=== PATIENT | male | born 1970 | race Caucasian/White ===

== ENCOUNTER 2018-12-09 11:05 | Inpatient (IN) | payer MEDICAID ==
[2018-12-09] MEDS: Zinc Oxide 20% Oint 56.7 GM Tube TOP SCH (18:05)
[2018-12-09] MEDS: Dextrose 5%-Lactated Ringers 1,000 ML IV SCH (23:50)
[2018-12-09] MEDS: Nystatin Topical Powder 15 GM Bottle TOP SCH (23:51)
[2018-12-10] MEDS: Dextrose 5%-Lactated Ringers 1,000 ML IV SCH ×2 (08:06→16:43)
[2018-12-10] MEDS: Zinc Oxide 20% Oint 56.7 GM Tube TOP SCH (08:07)
[2018-12-10] MEDS: Nystatin Topical Powder 15 GM Bottle TOP SCH ×3 (08:17→20:46)
[2018-12-10] MEDS ORDERED: Celecoxib 200 MG Cap PO ONE (08:30)
[2018-12-10] MEDS ORDERED: Gabapentin 300 MG Cap PO ONE (08:30)
[2018-12-10] MEDS ORDERED: Acetaminophen 500 MG Tab PO ONE (08:30)
[2018-12-10] MEDS ORDERED: Enoxaparin 60 MG/0.6 ML Syringe SUBCUT ONE (08:30)
[2018-12-10] MEDS ORDERED: Scopolamine 1.5 MG Transdermal Patch TOP SCH (08:30)
[2018-12-10] MEDS ORDERED: Rocuronium 50 MG/5 ML Vial ONE (09:39)
[2018-12-10] MEDS ORDERED: Succinylcholine 200 MG/10 ML MDV ONE (09:39)
[2018-12-10] MEDS ORDERED: Ondansetron 4 MG/2 ML SDV ONE (09:39)
[2018-12-10] MEDS ORDERED: Dexamethasone 4 MG/ML SDV ONE (09:39)
[2018-12-10] MEDS ORDERED: Glycopyrrolate 0.2 MG/ML 5 ML MDV ONE (09:39)
[2018-12-10] MEDS ORDERED: Neostigmine Methylsulfate 1 MG/ML 5 ML Syringe ONE (09:39)
[2018-12-10] MEDS ORDERED: Propofol 200 MG/20 ML SDV ONE (09:39)
[2018-12-10] MEDS ORDERED: Lidocaine 2% 100 MG/5 ML Syringe IVPUSH SCH ×2 (11:00→11:30)
[2018-12-10] MEDS ORDERED: Lidocaine 0.4%/D5W 2 GM/500 ML BAG IV SCH (11:30)
[2018-12-10] MEDS ORDERED: Ketamine 500 MG/5 ML MDV IV SCH (11:30)
[2018-12-10] MEDS ORDERED: Ketamine 50 MG in Sodium Chloride 0.9% 49.5 ML IV SCH (11:30)
[2018-12-10] MEDS ORDERED: cefOXitin 2 GM in Sodium Chloride 0.9% 50 ML IV ONE (11:30)
[2018-12-10] MEDS: cefOXitin 2 GM Vial ONE ×2 (13:54→14:54)
[2018-12-10] MEDS ORDERED: fentaNYL 250 MCG/5 ML SDV ONE (14:19)
[2018-12-10] MEDS ORDERED: hydrOXYzine HCl 100 MG/2 ML SDV IM ONE (15:55)
[2018-12-10] MEDS ORDERED: hydrOXYzine HCl 100 MG/2 ML SDV IM PRN (16:43)
[2018-12-10] MEDS ORDERED: Labetalol 20 MG/4 ML Syringe IVPUSH PRN (16:43)
[2018-12-10] MEDS ORDERED: HYDROmorphone 0.5 MG/0.5 ML Syringe IVPUSH PRN (16:43)
[2018-12-10] MEDS ORDERED: diphenhydrAMINE 50 MG/ML SDV IVPUSH PRN (16:43)
[2018-12-10] MEDS ORDERED: HYDROmorphone 1 MG/ML Syringe IV PRN (16:43)
[2018-12-10] MEDS ORDERED: Metoclopramide 10 MG/2 ML SDV IVPUSH PRN (16:43)
[2018-12-10] MEDS ORDERED: Ondansetron 4 MG/2 ML SDV IVPUSH PRN (16:43)
[2018-12-10] MEDS ORDERED: MVI, Adult with Vitamin K 10 ML, Thiamine 200 MG, Chromium/Copper/Mang/Selen/Zn 1 ML in... IV SCH ×4 (17:00)
[2018-12-10] MEDS: Heparin Sodium 5,000 Units/ML Vial SUBCUT SCH (18:02)
[2018-12-10] MEDS: cefOXitin 2 GM in Sodium Chloride 0.9% 50 ML IV SCH (19:29)
[2018-12-10] MEDS ORDERED: Acetaminophen Soln 650 MG/20.3 ML UD Cup PO SCH (20:00)
[2018-12-10] MEDS ORDERED: Pantoprazole 40 MG Vial IVPUSH SCH (20:00)
[2018-12-10] MEDS: Acetaminophen 325 MG Tab PO SCH (20:41)
[2018-12-10] MEDS: Gabapentin 250 MG/5 ML Solution ML 470 ML Bottle PO SCH (20:42)
[2018-12-11] MEDS: cefOXitin 2 GM in Sodium Chloride 0.9% 50 ML IV SCH ×4 (01:30→20:16)
[2018-12-11] MEDS: Acetaminophen 325 MG Tab PO SCH ×4 (01:31→20:16)
[2018-12-11] MEDS: Heparin Sodium 5,000 Units/ML Vial SUBCUT SCH ×2 (01:32→10:40)
--- NOTE | 2018-12-11 05:06 | CRLCR ---
Indication: Status post Holly-en-Y leak check Technique: KUB 3 view Comparison: None Findings/Impression: Oral contrast extends from the esophagus to the mid to distal jejunum. There are 2 oval opacities at the level of the proximal stomach which persist on all 3 images. The largest of these measures 2.3 cm in diameter. These are located medial to a ORTIZ drain in the left upper quadrant. Although this could represent oral contrast within the lumen, extravasation cannot be excluded. Consider CT for further evaluation. These findings were discussed with Dr. Hilton at 5 a.m. on December 11, 2018. Dictated by Kourtney Garcia MD @ Dec 11 2018 4:54AM (Electronically Signed)
[2018-12-11] MEDS: Dextrose 5%-Lactated Ringers 1,000 ML IV SCH ×3 (06:24→12:53)
[2018-12-11] MEDS: Celecoxib 200 MG Cap PO SCH (07:16)
[2018-12-11] MEDS: SCOPOLAMINE PATCH CHECK TOP SCH (08:27)
[2018-12-11] MEDS: Gabapentin 250 MG/5 ML Solution ML 470 ML Bottle PO SCH ×3 (08:27→20:16)
[2018-12-11] MEDS: Nystatin Topical Powder 15 GM Bottle TOP SCH ×3 (08:27→20:17)
[2018-12-11] MEDS: Zinc Oxide 20% Oint 56.7 GM Tube TOP SCH (08:28)
[2018-12-11] MEDS ORDERED: HYDROmorphone 2 MG Tab PO PRN ×2 (08:33→12:38)
[2018-12-11] MEDS ORDERED: Ondansetron 4 MG Tab.DIS PO PRN ×2 (08:36→12:33)
[2018-12-11] MEDS ORDERED: Enoxaparin 60 MG/0.6 ML Syringe SUBCUT SCH (08:45)
[2018-12-11] MEDS ORDERED: Dextrose 5%-Lactated Ringers 1,000 ML IV SCH (08:45)
[2018-12-11] MEDS ORDERED: DOXYCYCLINE MONOHYDRATE 100 MG PO SCH (09:00)
--- NOTE | 2018-12-11 12:13 | PCM.SURGPN ---
- General Info Date of Service: 12/11/18 Date of Surgery/Procedure: 12/10/18 POD#: 1 Functional Status: Reports: Pain Controlled (10/30), Ambulating, Urinating - Review of Systems General: Reports: No Symptoms HEENT: Denies: Headaches, Visual Changes Pulmonary: Denies: Shortness of Breath, Pleuritic Chest Pain, Cough Cardiovascular: Reports: Edema (Normal at baseline). Denies: Chest Pain, Dyspnea on Exertion, Lightheadedness Gastrointestinal: Reports: Abdominal Pain (Has not had bowel movement since surgery). Denies: Difficulty Swallowing, Nausea, Vomiting Genitourinary: Reports: No Symptoms Neurological: Reports: No Symptoms Psychiatric: Reports: No Symptoms - Patient Data Vitals - Most Recent: Last Vital Signs Temp 36.7 C 12/11/18 11:00 Pulse 99 12/11/18 11:00 Resp 18 12/11/18 11:00 BP 162/85 H 12/11/18 11:00 Pulse Ox 99 12/11/18 11:00 Weight - Most Recent: 248.251 kg I&O - Last 24 Hours: Intake & Output 12/10/18 12/11/18 12/11/18 22:59 06:59 14:59 Intake Total 1873 330 Output Total 705 635 910 Balance -705 1238 -580 Med Orders - Current: Current Medications Acetaminophen (Tylenol) 650 mg PO Q6H [facility] Last Admin: 12/11/18 07:15 Dose: 650 mg Celecoxib (Celebrex) 200 mg PO DAILY@0800 [facility] Last Admin: 12/11/18 07:16 Dose: 200 mg Cyanocobalamin (Vitamin B12) 1,000 mcg IM ONETIME ONE Stop: 12/12/18 09:01 Diphenhydramine HCl (Benadryl) 50 mg IVPUSH Q4H PRN PRN Reason: ITCHING Gabapentin (Neurontin) 300 mg PO TID [facility] Last Admin: 12/11/18 08:27 Dose: 300 mg Heparin Sodium (Porcine) (Heparin Sodium) 5,000 units SUBCUT Q8H [facility] Last Admin: 12/11/18 10:40 Dose: 5,000 units Hydromorphone HCl (Dilaudid) 0.5 mg IVPUSH Q2H PRN PRN Reason: MODERATE PAIN Hydromorphone HCl (Dilaudid) 1 mg IV Q2H PRN PRN Reason: SEVERE PAIN Last Admin: 12/10/18 19:28 Dose: 1 mg Hydroxyzine HCl (Vistaril) 100 mg IM Q4H PRN PRN Reason: pain Dextrose/Lactated Ringer's (Dextrose 5%-Lactated Ringers) 1,000 mls @ 175 mls/ hr IV ASDIRECTED [facility] Last Admin: 12/11/18 06:24 Dose: 175 mls/hr Multivitamins/Minerals 10 ml/Thiamine HCl 200 mg/ Chromium/Copper/Manganese/ Seleni/Zn 1 ml/ Dextrose/Lactated Ringer's 1,013 mls @ 175 mls/hr IV DAILY@ 1600 [facility] Last Admin: 12/10/18 17:03 Dose: 175 mls/hr Cefoxitin Sodium 2 gm/ Sodium (Chloride) 50 mls @ 100 mls/hr IV Q6H [facility] Stop: 12/11/18 20:29 Last Admin: 12/11/18 07:15 Dose: 100 mls/hr Labetalol HCl (Normodyne) 5 mg IVPUSH Q5M PRN PRN Reason: SBP over 160 OR DBP over 95 Metoclopramide HCl (Reglan) 10 mg IVPUSH Q6H PRN PRN Reason: NAUSEA NOT CONTROL BY ZOFRAN Miscellaneous Information (Remove Patch) 1 ea TRDERM ONETIME ONE Stop: 12/12/18 10:01 Multi-Ingred Cream/Lotion/Oil/Oint (Zinc Oxide) 0 gm TOP DAILY [facility] Last Admin: 12/11/18 08:28 Dose: 1 applic Scopolamine Patch (Check) 1 each TOP DAILY [facility] Stop: 12/12/18 16:44 Last Admin: 12/11/18 08:27 Dose: Not Given Nystatin (Nystop) 0 gm TOP TID [facility] Last Admin: 12/11/18 08:27 Dose: 1 applic Ondansetron HCl (Zofran) 4 mg IVPUSH Q4H PRN PRN Reason: Nausea/Vomiting Pantoprazole Sodium (Protonix Granules) 40 mg PO Q24H [facility] Scopolamine (Transderm-Scop) 1.5 mg TOP Q72H [facility] Stop: 12/12/18 08:31 Last Admin: 12/10/18 08:07 Dose: 1.5 mg Discontinued Medications Acetaminophen (Tylenol Extra Strength) 1,000 mg PO ONETIME ONE Stop: 12/10/18 08:31 Last Admin: 12/10/18 08:07 Dose: 1,000 mg Cefoxitin Sodium (Mefoxin) Confirm Administered Dose 2 gm .ROUTE .STK-MED ONE Stop: 12/10/18 07:08 Last Admin: 12/10/18 14:54 Dose: 2 gm Celecoxib (Celebrex) 200 mg PO ONETIME ONE Stop: 12/10/18 08:31 Last Admin: 12/10/18 08:07 Dose: 200 mg Ropivacaine 60 ml/Dexamethasone 8 mg/Epinephrine HCl 0.4 mg/ Sodium Chloride 17.6 ml 0 ml NERVRT ASDIRECTED [facility] Last Admin: 12/10/18 14:06 Dose: 80 syringe Dexamethasone (Dexamethasone) Confirm Administered Dose 4 mg .ROUTE .STK-MED ONE Stop: 12/10/18 09:40 Enoxaparin Sodium (Lovenox) 60 mg SUBCUT ONETIME ONE Stop: 12/10/18 08:31 Last Admin: 12/10/18 08:06 Dose: 60 mg Fentanyl (Sublimaze) Confirm Administered Dose 250 mcg .ROUTE .STK-MED ONE Stop: 12/10/18 14:20 Fentanyl Citrate (Fentanyl) Confirm Administered Dose 500 mcg .ROUTE .STK-MED ONE Stop: 12/10/18 09:40 Gabapentin (Neurontin) 300 mg PO ONETIME ONE Stop: 12/10/18 08:31 Last Admin: 12/10/18 08:07 Dose: 300 mg Glycopyrrolate (Robinul) Confirm Administered Dose 1 mg .ROUTE .STK-MED ONE Stop: 12/10/18 09:40 Hydroxyzine HCl (Vistaril) 100 mg IM ONETIME ONE Stop: 12/10/18 15:56 Last Admin: 12/10/18 16:01 Dose: 100 mg Dextrose/Lactated Ringer's (Dextrose 5%-Lactated Ringers) 1,000 mls @ 100 mls/ hr IV ASDIRECTED [facility] Last Admin: 12/10/18 08:06 Dose: 100 mls/hr Cefoxitin Sodium 2 gm/ Sodium (Chloride) 50 mls @ 100 mls/hr IV ONCALL ONE Stop: 12/10/18 11:59 Last Admin: 12/10/18 12:58 Dose: 100 mls/hr Ketamine HCl 50 mg/ Sodium (Chloride) 50 mls @ 21.9 mls/hr IV ASDIRECTED [facility] Lidocaine HCl/Dextrose (Lidocaine 2 Gm/D5w 500 Ml) 2 gm in 500 mls @ 22.5 mls/ hr IV .[id number] [facility] Stop: 12/11/18 09:43 Last Admin: 12/10/18 16:41 Dose: 1.5 mg/min, 22.5 mls/hr Ketamine HCl (Ketalar) 36 mg IV ASDIRECTED [facility] Lidocaine HCl (Xylocaine 2%) 160 mg IVPUSH ASDIRECTED [facility] Neostigmine Methylsulfate (Neostigmine) Confirm Administered Dose 5 mg .ROUTE .STK-MED ONE Stop: 12/10/18 09:40 Ondansetron HCl (Zofran) Confirm Administered Dose 4 mg .ROUTE .STK-MED ONE Stop: 12/10/18 09:40 Pantoprazole Sodium (Protonix Iv) 40 mg IVPUSH Q24H [facility] Last Admin: 12/10/18 20:46 Dose: 40 mg Propofol (Diprivan 20 Ml) Confirm Administered Dose 200 mg .ROUTE .STK-MED ONE Stop: 12/10/18 09:40 Rocuronium [place] (Zemuron) Confirm Administered Dose 50 mg .ROUTE .STK-MED ONE Stop: 12/10/18 09:40 Sodium Chloride (Normal Saline) 500 ml IRR .STK-MED ONE Stop: 12/10/18 14:55 Last Admin: 12/10/18 14:54 Dose: 500 ml Succinylcholine Chloride (Quelicin) Confirm Administered Dose 200 mg .ROUTE .STK -MED ONE Stop: 12/10/18 09:40 - Exam Wound/Incisions: Healing Well, Drainage (Small amount of bloody drainage from the ORTIZ drain) Quality Assessment: DVT Prophylaxis General: Alert, Oriented, Cooperative, No Acute Distress Lungs: Clear to Auscultation, Normal Respiratory Effort Cardiovascular: Regular Rate, Regular Rhythm, No Murmurs Neurological: No New Focal Deficit Psy/Mental Status: Alert, Normal Affect, Normal Mood - Problem List Review Problem List Initiated/Reviewed/Updated: Yes - My Orders Last 24 Hours: Active Orders 24 hr Category Date Time Status Patient Status [ADT] Routine ADT 12/10/18 16:00 Active Ambulate [RC] ASDIRECTED Care 12/10/18 16:36 Active Cardiac Monitoring Discontinue [RC] Click to Edit Care 12/11/18 09:00 Active Cardiac Monitoring [RC] .As Directed Care 12/10/18 16:36 Active Communication Order [RC] ASDIRECTED Care 12/11/18 08:37 Active Communication Order [RC] ASDIRECTED Care 12/11/18 08:38 Active Communication Order [RC] ASDIRECTED Care 12/12/18 04:00 Active Communication Order [RC] ROUTINE Care 12/10/18 16:36 Active Dorsiflex/Plantar flex x 10 [RC] QSHIFT Care 12/10/18 16:36 Active Drain Management [RC] BID Care 12/10/18 16:36 Active Head of Bed Elevation [RC] CONTINUOUS Care 12/10/18 16:36 Active Insert Urinary Catheter [OM.PC] Per Unit Routine Care 12/10/18 16:36 Ordered Intake and Output [RC] ASDIRECTED Care 12/10/18 16:36 Active Notify Provider Intake and Out [RC] ASDIRECTED Care 12/10/18 16:36 Active Notify Provider [RC] PRN Care 12/10/18 16:36 Active Oxygen Therapy [RC] ASDIRECTED Care 12/10/18 16:36 Active Pneumonia Education [RC] UPON Care 12/10/18 16:36 Active Pulse Oximetry [RC] ASDIRECTED Care 12/10/18 16:36 Active RT BiPAP/CPAP [RC] ASDIRECTED Care 12/10/18 16:36 Active RT BiPAP/CPAP [RC] ASDIRECTED Care 12/10/18 16:38 Active RT Incentive Spirometry [RC] Q1HWA Care 12/10/18 16:36 Active Turn, Cough, Deep Breathe [RC] Q1HWA Care 12/10/18 16:36 Active Up to Chair [RC] TIDMEALS Care 12/10/18 16:36 Active Urinary Catheter Assessment [RC] ASDIRECTED Care 12/10/18 16:37 Active Vital Signs [RC] Q1HR Care 12/10/18 17:00 Active Consult to Bariatric Services [CONS] Routine Cons 12/10/18 16:36 Active Consult to F[employer] R[employer] Clerk [CONS] Routine Cons 12/10/18 16:36 Active Respiratory Care Assess and Treatment [CONS] Routine Cons 12/10/18 16:36 Active Bariatric Diet [DIET] Diet 12/11/18 Breakfast Active Acetaminophen [Tylenol] Med 12/10/18 20:00 Active 650 mg PO Q6H Celecoxib [CeleBREX] Med 12/11/18 08:00 Active 200 mg PO DAILY@0800 Cyanocobalamin (Vitamin B12) [Vitamin B12] Med 12/12/18 09:00 Once 1,000 mcg IM ONETIME ONE Dextrose 5%-Lactated Ringers 1,000 ml Med 12/10/18 16:45 Active IV ASDIRECTED Dextrose 5%-Lactated Ringers @ 100 MLS/HR(1,000ml) Med 12/11/18 08:45 Ordered Dextrose 5%-Lactated Ringers 1,000 ml IV ASDIRECTED Doxycycline Monohydrate [Doxycycline Monohydrate] Med 12/11/18 09:00 Ordered 100 mg PO BID Enoxaparin [Lovenox] Med 12/11/18 08:45 Ordered 60 mg SUBCUT Q12H Gabapentin [Neurontin] Med 12/10/18 21:00 Active 300 mg PO TID HYDROmorphone [Dilaudid] Med 12/10/18 16:43 Active 0.5 mg IVPUSH Q2H PRN HYDROmorphone [Dilaudid] Med 12/10/18 16:43 Stop Req 1 mg IV Q2H PRN HYDROmorphone [Dilaudid] Med 12/11/18 08:33 Ordered 2 - 4 mg PO Q4H PRN Heparin Sodium Med 12/10/18 18:00 Stop Req 5,000 units SUBCUT Q8H Iohexol [Omnipaque-300] Med 12/11/18 03:54 Stat 50 ml PO .ASDIRECTED [facility] Labetalol [Normodyne] Med 12/10/18 16:43 Active 5 mg IVPUSH Q5M PRN MVI, Adult with Vitamin K [Infuvite Adult] 10 ml Med 12/10/18 17:00 Active Thiamine [Vitamin B-1] 200 mg Chromium/Copper/Braulio/Selen/Zn [Multitrace-5 Concentrate ] 1 ml Dextrose 5%-Lactated Ringers 1,000 ml IV DAILY@1600 Metoclopramide [Reglan] Med 12/10/18 16:43 Active 10 mg IVPUSH Q6H PRN Non-Formulary Medication [NF Drug] Med 12/10/18 16:43 Active 1 each TOP DAILY Ondansetron [Zofran ODT] Med 12/11/18 08:36 Ordered 4 mg PO Q4H PRN Ondansetron [Zofran] Med 12/10/18 16:43 Active 4 mg IVPUSH Q4H PRN Pantoprazole [ProTONIX Granules] Med 12/11/18 20:00 Active 40 mg PO Q24H Pharmacy Consult [Consult to Pharmacy] Med 12/10/18 16:45 Ordered 1 each .XX ASDIRECTED Remove Patch Med 12/12/18 10:00 Once 1 ea TRDERM ONETIME ONE cefOXitin [Mefoxin] 2 gm Med 12/10/18 20:00 Active Sodium Chloride 0.9% [Normal Saline] 50 ml IV Q6H diphenhydrAMINE [Benadryl] Med 12/10/18 16:43 Active 50 mg IVPUSH Q4H PRN hydrOXYzine HCl [Vistaril] Med 12/10/18 16:43 Active 100 mg IM Q4H PRN Abdominal Binder [OM.PC] Routine Oth 12/10/18 16:36 Ordered Convert IV to Saline Lock [OM.PC] Routine Oth 12/11/18 08:36 Ordered Oral Care [OM.PC] BID Oth 12/10/18 16:45 Ordered Oral Care [OM.PC] BID Oth 12/11/18 16:45 Ordered PT Screening [OM.PC] Routine Oth 12/10/18 16:36 Active Specialty Bed [OM.PC] Routine Oth 12/10/18 16:36 Ordered Resuscitation Status Routine Resus Stat 12/10/18 16:36 Ordered Medication Orders Acetaminophen (Tylenol) 650 mg PO Q6H [facility] Last Admin: 12/11/18 07:15 Dose: 650 mg Admin: 12/11/18 01:31 Dose: 650 mg Admin: 12/10/18 20:41 Dose: 650 mg Celecoxib (Celebrex) 200 mg PO DAILY@0800 [facility] Last Admin: 12/11/18 07:16 Dose: 200 mg Cyanocobalamin (Vitamin B12) 1,000 mcg IM ONETIME ONE Stop: 12/12/18 09:01 Diphenhydramine HCl (Benadryl) 50 mg IVPUSH Q4H PRN PRN Reason: ITCHING Gabapentin (Neurontin) 300 mg PO TID [facility] Last Admin: 12/11/18 08:27 Dose: 300 mg Admin: 12/10/18 20:42 Dose: 300 mg Heparin Sodium (Porcine) (Heparin Sodium) 5,000 units SUBCUT Q8H [facility] Last Admin: 12/11/18 10:40 Dose: 5,000 units Admin: 12/11/18 01:32 Dose: 5,000 units Admin: 12/10/18 18:02 Dose: 5,000 units Hydromorphone HCl (Dilaudid) 0.5 mg IVPUSH Q2H PRN PRN Reason: MODERATE PAIN Hydromorphone HCl (Dilaudid) 1 mg IV Q2H PRN PRN Reason: SEVERE PAIN Last Admin: 12/10/18 19:28 Dose: 1 mg Hydroxyzine HCl (Vistaril) 100 mg IM Q4H PRN PRN Reason: pain Dextrose/Lactated Ringer's (Dextrose 5%-Lactated Ringers) 1,000 mls @ 175 mls/ hr IV ASDIRECTED [facility] Last Admin: 12/11/18 06:24 Dose: 175 mls/hr Infusion: 12/11/18 05:43 Dose: 175 mls/hr Admin: 12/11/18 00:00 Dose: 175 mls/hr Admin: 12/10/18 16:43 Dose: 175 mls/hr Multivitamins/Minerals 10 ml/Thiamine HCl 200 mg/ Chromium/Copper/Manganese/ Seleni/Zn 1 ml/ Dextrose/Lactated Ringer's 1,013 mls @ 175 mls/hr IV DAILY@ 1600 [facility] Last Admin: 12/10/18 17:03 Dose: 175 mls/hr Cefoxitin Sodium 2 gm/ Sodium (Chloride) 50 mls @ 100 mls/hr IV Q6H [facility] Stop: 12/11/18 20:29 Last Admin: 12/11/18 07:15 Dose: 100 mls/hr Admin: 12/11/18 01:30 Dose: 100 mls/hr Admin: 12/10/18 19:29 Dose: 100 mls/hr Labetalol HCl (Normodyne) 5 mg IVPUSH Q5M PRN PRN Reason: SBP over 160 OR DBP over 95 Metoclopramide HCl (Reglan) 10 mg IVPUSH Q6H PRN PRN Reason: NAUSEA NOT CONTROL BY ZOFRAN Miscellaneous Information (Remove Patch) 1 ea TRDERM ONETIME ONE Stop: 12/12/18 10:01 Multi-Ingred Cream/Lotion/Oil/Oint (Zinc Oxide) 0 gm TOP DAILY [facility] Last Admin: 12/11/18 08:28 Dose: 1 applic Admin: 12/10/18 08:07 Dose: 1 applic Admin: 12/09/18 18:05 Dose: Scopolamine Patch (Check) 1 each TOP DAILY [facility] Stop: 12/12/18 16:44 Last Admin: 12/11/18 08:27 Dose: Nystatin (Nystop) 0 gm TOP TID [facility] Last Admin: 12/11/18 08:27 Dose: 1 applic Admin: 12/10/18 20:46 Dose: 1 applic Admin: 12/10/18 13:39 Dose: Admin: 12/10/18 08:17 Dose: 1 applic Admin: 12/09/18 23:51 Dose: 1 applic Ondansetron HCl (Zofran) 4 mg IVPUSH Q4H PRN PRN Reason: Nausea/Vomiting Pantoprazole Sodium (Protonix Granules) 40 mg PO Q24H [facility] Scopolamine (Transderm-Scop) 1.5 mg TOP Q72H [facility] Stop: 12/12/18 08:31 Last Admin: 12/10/18 08:07 Dose: 1.5 mg - Assessment Assessment (Free Text/Narrative):: Isaias Paula is a 48 yo male s/o 1 day after RYGB for weight managnement ( BMI 83). Isaias is healing well and was able to walk from down the [place] and back with a walker (~30 yards). Pain was 4/10 mostly at the laparoscopic sites. He is urinating a lot and has yet to have a BM. Vitals are stable. He is tolerating liquid diet well w/o N/V. His social situation may prove difficult for follow up cares. He has a niece who is dying of cancer down in [place] and he and his have plans to move down there after his paycheck on December 21. Therefore, he would not like to be put in a short term nursing facility in the area which we think is appropriate given the minimal help available at home. Patient would be willing to go to a nursing facility that is near where he is moving. - Plan Plan (Free Text/Narrative):: 1. RYGB -reimbursement spec consult -advance to step 2 diet -cefoxitin -Change from heparin to Lovenox 60 BID -Ambulate as tolerated -CMP -CBC -Continue to work with patient on recovery plan 2. Fungal infection on leg -zinc oxide treatment
[2018-12-11] MEDS: Doxycycline 100 MG Cap PO SCH ×2 (12:51→20:17)
[2018-12-11] MEDS: MVI, Adult with Vitamin K 10 ML, Thiamine 200 MG, Chromium/Copper/Mang/Selen/Zn 1 ML in... IV SCH ×4 (15:27)
[2018-12-11] MEDS: Enoxaparin 60 MG/0.6 ML Syringe SUBCUT SCH (17:33)
[2018-12-11] MEDS ORDERED: Iohexol 647 MG/ML 50 ML SDV PO STA (19:10)
[2018-12-11] MEDS: Pantoprazole 40 MG Delayed-Release Granules 1 Packet PO SCH (20:16)
[2018-12-12] MEDS: Dextrose 5%-Lactated Ringers 1,000 ML IV SCH (02:16)
[2018-12-12] MEDS: Acetaminophen 325 MG Tab PO SCH ×4 (02:17→20:32)
[2018-12-12] MEDS: Enoxaparin 60 MG/0.6 ML Syringe SUBCUT SCH ×2 (05:34→18:21)
[2018-12-12] MEDS ORDERED: Cyanocobalamin (Vitamin B12) 1,000 MCG/ML SDV IM ONE (09:00)
[2018-12-12] MEDS: Gabapentin 250 MG/5 ML Solution ML 470 ML Bottle PO SCH ×3 (09:11→20:34)
[2018-12-12] MEDS: Doxycycline 100 MG Cap PO SCH ×2 (09:12→20:33)
[2018-12-12] MEDS: Celecoxib 200 MG Cap PO SCH (09:12)
[2018-12-12] MEDS: Nystatin Topical Powder 15 GM Bottle TOP SCH ×3 (09:12→20:32)
[2018-12-12] MEDS: Magnesium Hydroxide 400 MG/5 ML Susp 30 ML Cup PO SCH ×2 (09:12→20:32)
[2018-12-12] MEDS: Zinc Oxide 20% Oint 56.7 GM Tube TOP SCH (09:13)
[2018-12-12] MEDS: SCOPOLAMINE PATCH CHECK TOP SCH (09:13)
--- NOTE | 2018-12-12 13:34 | PCM.SURGPN ---
- General Info Date of Service: 12/12/18 Date of Surgery/Procedure: 12/10/18 POD#: 2 Post-Op Diagnosis: Morbid obesity Admission Diagnosis/Problem: Morbid obesity Functional Status: Reports: Pain Controlled, Tolerating Diet, Urinating - Review of Systems General: Reports: No Symptoms HEENT: Reports: No Symptoms Pulmonary: Reports: No Symptoms Cardiovascular: Reports: No Symptoms Gastrointestinal: Reports: No Symptoms Genitourinary: Reports: No Symptoms Musculoskeletal: Reports: No Symptoms Skin: Reports: Other (Fungal skin infection on left leg; continuing to be treated by wound team) Neurological: Reports: No Symptoms Psychiatric: Reports: No Symptoms - Patient Data Vitals - Most Recent: Last Vital Signs Temp 37.6 C 12/12/18 11:00 Pulse 89 12/12/18 11:00 Resp 20 12/12/18 11:00 BP 130/69 12/12/18 11:00 Pulse Ox 94 L 12/12/18 11:00 Weight - Most Recent: 248.251 kg I&O - Last 24 Hours: Intake & Output 12/11/18 12/12/18 12/12/18 22:59 06:59 14:59 Intake Total 2470 1642 180 Output Total 415 245 Balance 2055 1397 180 Imaging Impressions - Last 24 Hrs: See x-ray report from 12/11/18. No signs of leaks. Med Orders - Current: Current Medications Acetaminophen (Tylenol) 650 mg PO Q6H [facility] Last Admin: 12/12/18 09:12 Dose: 650 mg Celecoxib (Celebrex) 200 mg PO DAILY@0800 [facility] Last Admin: 12/12/18 09:12 Dose: 200 mg Diphenhydramine HCl (Benadryl) 50 mg IVPUSH Q4H PRN PRN Reason: ITCHING Doxycycline Hyclate (Vibramycin) 100 mg PO BID [facility] Last Admin: 12/12/18 09:12 Dose: 100 mg Enoxaparin Sodium (Lovenox) 60 mg SUBCUT Q12H [facility] Last Admin: 12/12/18 05:34 Dose: 60 mg Gabapentin (Neurontin) 300 mg PO TID [facility] Last Admin: 12/12/18 09:11 Dose: 300 mg Hydromorphone HCl (Dilaudid) 2 - 4 mg PO Q4H PRN PRN Reason: PAIN Hydroxyzine HCl (Vistaril) 100 mg IM Q4H PRN PRN Reason: pain Dextrose/Lactated Ringer's (Dextrose 5%-Lactated Ringers) 1,000 mls @ 100 mls/ hr IV ASDIRECTED [facility] Last Admin: 12/12/18 02:16 Dose: 100 mls/hr Multivitamins/Minerals 10 ml/Thiamine HCl 200 mg/ Chromium/Copper/Manganese/ Seleni/Zn 1 ml/ Dextrose/Lactated Ringer's 1,013 mls @ 100 mls/hr IV DAILY@ 1600 [facility] Last Admin: 12/11/18 15:27 Dose: 100 mls/hr Labetalol HCl (Normodyne) 5 mg IVPUSH Q5M PRN PRN Reason: SBP over 160 OR DBP over 95 Magnesium Hydroxide (Milk Of Magnesia) 30 ml PO BID [facility] Last Admin: 12/12/18 09:12 Dose: 30 ml Metoclopramide HCl (Reglan) 10 mg IVPUSH Q6H PRN PRN Reason: NAUSEA NOT CONTROL BY ZOFRAN Multi-Ingred Cream/Lotion/Oil/Oint (Zinc Oxide) 0 gm TOP DAILY [facility] Last Admin: 12/12/18 09:13 Dose: 1 applic Scopolamine Patch (Check) 1 each TOP DAILY [facility] Stop: 12/12/18 16:44 Last Admin: 12/12/18 09:13 Dose: Not Given Nystatin (Nystop) 0 gm TOP TID [facility] Last Admin: 12/12/18 09:12 Dose: 1 applic Ondansetron HCl (Zofran) 4 mg IVPUSH Q4H PRN PRN Reason: Nausea/Vomiting Ondansetron HCl (Zofran Odt) 4 mg PO Q4H PRN PRN Reason: N/V Pantoprazole Sodium (Protonix Granules) 40 mg PO Q24H [facility] Last Admin: 12/11/18 20:16 Dose: 40 mg Discontinued Medications Acetaminophen (Tylenol Extra Strength) 1,000 mg PO ONETIME ONE Stop: 12/10/18 08:31 Last Admin: 12/10/18 08:07 Dose: 1,000 mg Cefoxitin Sodium (Mefoxin) Confirm Administered Dose 2 gm .ROUTE .STK-MED ONE Stop: 12/10/18 07:08 Last Admin: 12/10/18 14:54 Dose: 2 gm Celecoxib (Celebrex) 200 mg PO ONETIME ONE Stop: 12/10/18 08:31 Last Admin: 12/10/18 08:07 Dose: 200 mg Ropivacaine 60 ml/Dexamethasone 8 mg/Epinephrine HCl 0.4 mg/ Sodium Chloride 17.6 ml 0 ml NERVRT ASDIRECTED [facility] Last Admin: 12/10/18 14:06 Dose: 80 syringe Cyanocobalamin (Vitamin B12) 1,000 mcg IM ONETIME ONE Stop: 12/12/18 09:01 Last Admin: 12/12/18 09:12 Dose: 1,000 mcg Dexamethasone (Dexamethasone) Confirm Administered Dose 4 mg .ROUTE .STK-MED ONE Stop: 12/10/18 09:40 Enoxaparin Sodium (Lovenox) 60 mg SUBCUT ONETIME ONE Stop: 12/10/18 08:31 Last Admin: 12/10/18 08:06 Dose: 60 mg Enoxaparin Sodium (Lovenox) 60 mg SUBCUT Q12H [facility] Last Admin: 12/11/18 22:00 Dose: Not Given Fentanyl (Sublimaze) Confirm Administered Dose 250 mcg .ROUTE .STK-MED ONE Stop: 12/10/18 14:20 Fentanyl Citrate (Fentanyl) Confirm Administered Dose 500 mcg .ROUTE .STK-MED ONE Stop: 12/10/18 09:40 Gabapentin (Neurontin) 300 mg PO ONETIME ONE Stop: 12/10/18 08:31 Last Admin: 12/10/18 08:07 Dose: 300 mg Glycopyrrolate (Robinul) Confirm Administered Dose 1 mg .ROUTE .STK-MED ONE Stop: 12/10/18 09:40 Heparin Sodium (Porcine) (Heparin Sodium) 5,000 units SUBCUT Q8H [facility] Last Admin: 12/11/18 10:40 Dose: 5,000 units Hydromorphone HCl (Dilaudid) 0.5 mg IVPUSH Q2H PRN PRN Reason: MODERATE PAIN Hydromorphone HCl (Dilaudid) 1 mg IV Q2H PRN PRN Reason: SEVERE PAIN Last Admin: 12/10/18 19:28 Dose: 1 mg Hydromorphone HCl (Dilaudid) 2 - 4 mg PO Q4H PRN PRN Reason: Pain Hydroxyzine HCl (Vistaril) 100 mg IM ONETIME ONE Stop: 12/10/18 15:56 Last Admin: 12/10/18 16:01 Dose: 100 mg Dextrose/Lactated Ringer's (Dextrose 5%-Lactated Ringers) 1,000 mls @ 100 mls/ hr IV ASDIRECTED [facility] Last Admin: 12/10/18 08:06 Dose: 100 mls/hr Cefoxitin Sodium 2 gm/ Sodium (Chloride) 50 mls @ 100 mls/hr IV ONCALL ONE Stop: 12/10/18 11:59 Last Admin: 12/10/18 12:58 Dose: 100 mls/hr Ketamine HCl 50 mg/ Sodium (Chloride) 50 mls @ 21.9 mls/hr IV ASDIRECTED [facility] Lidocaine HCl/Dextrose (Lidocaine 2 Gm/D5w 500 Ml) 2 gm in 500 mls @ 22.5 mls/ hr IV .[id number] [facility] Stop: 12/11/18 09:43 Last Admin: 12/10/18 16:41 Dose: 1.5 mg/min, 22.5 mls/hr Dextrose/Lactated Ringer's (Dextrose 5%-Lactated Ringers) 1,000 mls @ 175 mls/ hr IV ASDIRECTED [facility] Last Admin: 12/11/18 06:24 Dose: 175 mls/hr Multivitamins/Minerals 10 ml/Thiamine HCl 200 mg/ Chromium/Copper/Manganese/ Seleni/Zn 1 ml/ Dextrose/Lactated Ringer's 1,013 mls @ 175 mls/hr IV DAILY@ 1600 [facility] Last Admin: 12/10/18 17:03 Dose: 175 mls/hr Cefoxitin Sodium 2 gm/ Sodium (Chloride) 50 mls @ 100 mls/hr IV Q6H [facility] Stop: 12/11/18 20:29 Last Admin: 12/11/18 20:16 Dose: 100 mls/hr Dextrose/Lactated Ringer's (Dextrose 5%-Lactated Ringers) 1,000 mls @ 100 mls/ hr IV ASDIRECTED [facility] Iohexol (Omnipaque-300) 50 ml PO ONETIME STA Stop: 12/11/18 19:11 Last Admin: 12/11/18 22:01 Dose: Not Given Ketamine HCl (Ketalar) 36 mg IV ASDIRECTED [facility] Lidocaine HCl (Xylocaine 2%) 160 mg IVPUSH ASDIRECTED [facility] Miscellaneous Information (Remove Patch) 1 ea TRDERM ONETIME ONE Stop: 12/12/18 10:01 Neostigmine Methylsulfate (Neostigmine) Confirm Administered Dose 5 mg .ROUTE .STK-MED ONE Stop: 12/10/18 09:40 Non-Formulary Medication (Doxycycline Monohydrate [Doxycycline Monohydrate]) 100 mg PO BID [facility] Last Admin: 12/11/18 22:00 Dose: Not Given Ondansetron HCl (Zofran) Confirm Administered Dose 4 mg .ROUTE .STK-MED ONE Stop: 12/10/18 09:40 Ondansetron HCl (Zofran Odt) 4 mg PO Q4H PRN PRN Reason: Nausea/Vomiting Pantoprazole Sodium (Protonix Iv) 40 mg IVPUSH Q24H [facility] Last Admin: 12/10/18 20:46 Dose: 40 mg Pharmacy Consult (Consult To Pharmacy) 1 each .XX ASDIRECTED [facility] Stop: 12/12/18 07:15 Propofol (Diprivan 20 Ml) Confirm Administered Dose 200 mg .ROUTE .STK-MED ONE Stop: 12/10/18 09:40 Rocuronium [place] (Zemuron) Confirm Administered Dose 50 mg .ROUTE .STK-MED ONE Stop: 12/10/18 09:40 Scopolamine (Transderm-Scop) 1.5 mg TOP Q72H [facility] Stop: 12/12/18 08:31 Last Admin: 12/10/18 08:07 Dose: 1.5 mg Sodium Chloride (Normal Saline) 500 ml IRR .STK-MED ONE Stop: 12/10/18 14:55 Last Admin: 12/10/18 14:54 Dose: 500 ml Succinylcholine Chloride (Quelicin) Confirm Administered Dose 200 mg .ROUTE .STK -MED ONE Stop: 12/10/18 09:40 - Exam Wound/Incisions: Healing Well, Drainage (Small amount of serosanguinous fluid in ORTIZ drain.) Quality Assessment: DVT Prophylaxis General: Alert, Oriented Lungs: Clear to Auscultation, Normal Respiratory Effort Cardiovascular: Regular Rate, Regular Rhythm GI/Abdominal Exam: Normal Bowel Sounds, Soft, Non-Tender, No Distention Extremities: Normal Inspection (Fungal skin infection continuing to heal.) Neurological: No New Focal Deficit Psy/Mental Status: Alert, Normal Affect, Normal Mood - Problem List Review Problem List Initiated/Reviewed/Updated: Yes - My Orders Last 24 Hours: Active Orders 24 hr Category Date Time Status Communication Order [RC] ASDIRECTED Care 12/12/18 04:00 Active May Shower [RC] ASDIRECTED Care 12/12/18 07:59 Active Dextrose 5%-Lactated Ringers 1,000 ml Med 12/11/18 12:30 Active IV ASDIRECTED Doxycycline [Vibramycin] Med 12/11/18 12:30 Active 100 mg PO BID Enoxaparin [Lovenox] Med 12/11/18 18:30 Active 60 mg SUBCUT Q12H HYDROmorphone [Dilaudid] Med 12/11/18 12:38 Active 2 - 4 mg PO Q4H PRN MVI, Adult with Vitamin K [Infuvite Adult] 10 ml Med 12/11/18 16:00 Active Thiamine [Vitamin B-1] 200 mg Chromium/Copper/Braulio/Selen/Zn [Multitrace-5 Concentrate ] 1 ml Dextrose 5%-Lactated Ringers 1,000 ml IV DAILY@1600 Magnesium Hydroxide [Milk of Magnesia] Med 12/12/18 09:00 Active 30 ml PO BID Ondansetron [Zofran ODT] Med 12/11/18 12:33 Active 4 mg PO Q4H PRN Pantoprazole [ProTONIX Granules] Med 12/11/18 20:00 Active 40 mg PO Q24H Drain Removal [OM.PC] Routine Ot 12/12/18 07:59 Ordered Oral Care [OM.PC] BID Oth 12/11/18 16:45 Ordered Remove Dressing [OM.PC] Routine Oth 12/12/18 07:59 Ordered Medication Orders Acetaminophen (Tylenol) 650 mg PO Q6H [facility] Last Admin: 12/12/18 09:12 Dose: 650 mg Admin: 12/12/18 02:17 Dose: 650 mg Admin: 12/11/18 20:16 Dose: 650 mg Admin: 12/11/18 13:39 Dose: 650 mg Admin: 12/11/18 07:15 Dose: 650 mg Admin: 12/11/18 01:31 Dose: 650 mg Admin: 12/10/18 20:41 Dose: 650 mg Celecoxib (Celebrex) 200 mg PO DAILY@0800 [facility] Last Admin: 12/12/18 09:12 Dose: 200 mg Admin: 12/11/18 07:16 Dose: 200 mg Diphenhydramine HCl (Benadryl) 50 mg IVPUSH Q4H PRN PRN Reason: ITCHING Doxycycline Hyclate (Vibramycin) 100 mg PO BID [facility] Last Admin: 12/12/18 09:12 Dose: 100 mg Admin: 12/11/18 20:17 Dose: 100 mg Admin: 12/11/18 12:51 Dose: 100 mg Enoxaparin Sodium (Lovenox) 60 mg SUBCUT Q12H [facility] Last Admin: 12/12/18 05:34 Dose: 60 mg Admin: 12/11/18 17:33 Dose: 60 mg Gabapentin (Neurontin) 300 mg PO TID [facility] Last Admin: 12/12/18 09:11 Dose: 300 mg Admin: 12/11/18 20:16 Dose: 300 mg Admin: 12/11/18 15:04 Dose: 300 mg Admin: 12/11/18 08:27 Dose: 300 mg Admin: 12/10/18 20:42 Dose: 300 mg Hydromorphone HCl (Dilaudid) 2 - 4 mg PO Q4H PRN PRN Reason: PAIN Hydroxyzine HCl (Vistaril) 100 mg IM Q4H PRN PRN Reason: pain Dextrose/Lactated Ringer's (Dextrose 5%-Lactated Ringers) 1,000 mls @ 100 mls/ hr IV ASDIRECTED [facility] Last Admin: 12/12/18 02:16 Dose: 100 mls/hr Infusion: 12/11/18 22:53 Dose: 100 mls/hr Admin: 12/11/18 12:53 Dose: 100 mls/hr Multivitamins/Minerals 10 ml/Thiamine HCl 200 mg/ Chromium/Copper/Manganese/ Seleni/Zn 1 ml/ Dextrose/Lactated Ringer's 1,013 mls @ 100 mls/hr IV DAILY@ 1600 [facility] Last Admin: 12/11/18 15:27 Dose: 100 mls/hr Labetalol HCl (Normodyne) 5 mg IVPUSH Q5M PRN PRN Reason: SBP over 160 OR DBP over 95 Magnesium Hydroxide (Milk Of Magnesia) 30 ml PO BID [facility] Last Admin: 12/12/18 09:12 Dose: 30 ml Metoclopramide HCl (Reglan) 10 mg IVPUSH Q6H PRN PRN Reason: NAUSEA NOT CONTROL BY ZOFRAN Multi-Ingred Cream/Lotion/Oil/Oint (Zinc Oxide) 0 gm TOP DAILY [facility] Last Admin: 12/12/18 09:13 Dose: 1 applic Admin: 12/11/18 08:28 Dose: 1 applic Admin: 12/10/18 08:07 Dose: 1 applic Admin: 12/09/18 18:05 Dose: Scopolamine Patch (Check) 1 each TOP DAILY [facility] Stop: 12/12/18 16:44 Last Admin: 12/12/18 09:13 Dose: Admin: 12/11/18 08:27 Dose: Nystatin (Nystop) 0 gm TOP TID [facility] Last Admin: 12/12/18 09:12 Dose: 1 applic Admin: 12/11/18 20:17 Dose: 1 applic Admin: 12/11/18 13:40 Dose: 1 applic Admin: 12/11/18 08:27 Dose: 1 applic Admin: 12/10/18 20:46 Dose: 1 applic Admin: 12/10/18 13:39 Dose: Admin: 12/10/18 08:17 Dose: 1 applic Admin: 12/09/18 23:51 Dose: 1 applic Ondansetron HCl (Zofran) 4 mg IVPUSH Q4H PRN PRN Reason: Nausea/Vomiting Ondansetron HCl (Zofran Odt) 4 mg PO Q4H PRN PRN Reason: N/V Pantoprazole Sodium (Protonix Granules) 40 mg PO Q24H [facility] Last Admin: 12/11/18 20:16 Dose: 40 mg - Assessment Assessment (Free Text/Narrative):: Isaias Paula is a 48 yo male with morbid obesity presenting s/p 2 days after RYGB. He is recovering well and maintains a good attitude during this recovery period. He has yet to have a BM though he is passing gas, continues to tolerate step 2 diet, and continues to urinate. He is ambulating well. No signs of leakage or bleeding. He has found a place for recovery called [facility] (see other notes). He should be able to be discharged Sunday which is when he states he will have transportation available. - Plan Plan (Free Text/Narrative):: 1. Post-op RYGB -Step 2 diet -Ambulate -Doxycycline -Lovenox 60 BID -Pain control -Short term rehab on discharge -Milk of magnesia -Remove drains 2. Fungal skin infection -Zinc oxide -Nystatin
--- NOTE | 2018-12-12 14:09 | OR ---
DATE OF PROCEDURE: 12/10/2018 SURGEON: Vincent Hilton MD PREOPERATIVE DIAGNOSIS: Morbid obesity. POSTOPERATIVE DIAGNOSES: 1. Morbid obesity. 2. Marked hepatomegaly. 3. 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 4. Peritoneal implant at angle of His. 5. Paraesophageal diaphragmatic hernia. 6. Mediastinal lipoma. OPERATIVE PROCEDURES: Diagnostic laparoscopy with: 1. Laparoscopic Holly-en-Y gastric bypass with long-limb gastroenterostomy (26415). 2. Paulino-Cut needle liver biopsy (04444). 3. Small bowel resection (40902). 4. Excision of mediastinal lipoma (94673). 5. Repair of paraesophageal diaphragmatic hernia (83316). 6. Excision of peritoneal nodule overlying the angle of His (01453). ANESTHESIA: General. [employer]OPMENT: EAMON Dodson3. INDICATIONS FOR PROCEDURE: This is a 48-year-old male presenting with extreme morbid obesity and quite severe associated comorbidities. He had a recent BMI reported in the range of 83. The plan is to proceed with a laparoscopic Holly-en-Y gastric bypass. He is aware that he may need to opt to a sleeve gastrectomy, should the small bowel not be satisfactory mobile at this time to bring up to the gastric pouch. Otherwise, potential risks including bleeding, infection, leaks from various GI tract closures, problems with bowel obstruction overtime, as well as the possibility of cardiopulmonary, septic, or hemorrhagic complications leading to were discussed, and the patient wishes to proceed. DETAILS OF PROCEDURE: The patient was taken to the operating room and after general endotracheal anesthesia was induced, he was placed in a lithotomy position. The abdomen was then prepped and draped. At 15 cm inferior and 5 cm left of the xiphoid process, a transverse incision was made and the peritoneal cavity entered under direct vision with an Optiview trocar, inflated to 15 mmHg pressure with CO2. Laparoscope was reinserted and no underlying trocar insertion site or injuries were seen. Following this, bilateral transversus abdominis plane blocks were placed, and 5 additional trocars were placed across the upper and mid abdomen. The liver, as expected, was markedly fatty infiltrated and markedly enlarged. Paulino-Cut needle biopsy was obtained from the left lobe of liver. Minimal bleeding from the biopsy site was controlled with electrocautery. At this point, the omentum was divided in the midline up to the level of the transverse colon. This allowed identification of small bowel at ligament of Treitz. Small bowel was then traced out 150 cm distal to that point, where it was divided transversely with a MARY stapler. The mesentery at this point was noted to be markedly fatty infiltrated and foreshortened, limiting the mobility of the small bowel. Given this, to facilitate subsequent mobility of the jejunojejunostomy to allow a relatively tension-free gastrojejunostomy, roughly 10 cm of the biliopancreatic limb was resected. The mesentery underlying this was divided with Harmonic scalpel and then the small bowel divided at that level with a MARY gomez load. That small bowel specimen was then delivered from the field. The small bowel was then traced out additional 150 cm, where the [id number] enteroenterostomy was accomplished with internal firing of the Endo-MARY 60-mm stapler. Common opening was then closed transversely with the same stapler and the angles anastomosed, and mesenteric defect approximated with 0 Ethibond stitch along with 4 mL of fibrin sealant. The Holly limb was able to be mobilized with an antecolic approach up to the level of the gastroesophageal junction with minimal tension at this time. The liver was then retracted anteriorly. The patient was noted to have whitish peritoneal implant located over the peritoneum of the angle of His. This was excised for histologic evaluation. Additionally, the patient was noted to have a paraesophageal diaphragmatic hernia with prolapse of a portion of the perigastric fat in fundus of the stomach in a plane anterior to the course of the stomach. This was reduced and peritoneum overlying it was incised and reflected downward. During the course of the dissection, a mediastinal lipoma was encountered, which was then excised. An anterior repair of the diaphragmatic hernia was then accomplished with some 0 Ethibond sutures reinforced with PTFE pledgets. The gastrointestinal balloon catheter was then inflated to 15 mL, pulled up snuggly at the EG junction. Gastric wall over the apex of the balloon was then marked with electrocautery. Balloon catheter was deflated and pulled up in the esophagus. The lesser omental tissue adjacent to the gastric cardia was incised, allowing dissection behind the stomach at that level. The stomach at the initial level of the staple firing was noted to be quite thick and given this, this was initially divided with a transversely-oriented MARY black load and positioned over the cauterized hanny at the gastric cardia. The pouch was then completed with additional firings of the MARY stapler purple loads up to and through the angle of His. Upon completion of the pouch, both staple lines appeared to be intact. The anvil of a 25-mm EEA stapler was attached to Elwell sump type tube, the latter was brought down through the mouth and taken out a small opening in the gastric pouch, allowing the anvil likewise to be pulled down to within the gastric pouch. The divided end of the Holly limb was then opened. The main body EEA stapler was passed several centimeters into the lumen of small bowel, brought up the anvil and united with it, thus creating the gastrojejunostomy. Upon removal of the stapler, double donuts of mucosa were noted within it. The small bowel was closed off with a vascular staple line. Gastrojejunostomy was reinforced with some 3-0 Vicryl seromuscular stitch, along with fibrin sealant. Leak test was accomplished with injection of 120 mL of air in the gastric pouch while it was submerged with cefoxitin-containing saline solution. No leaks were identified. A single Oswaldo- Vincent drain was then taken out through the left lateral trocar site and positioned adjacent to the gastric cardia and from there up into the splenic fossa. With no further problems noted, trocars were removed and the peritoneal cavity deflated. Incisions were closed with 4-0 Vicryl skin stitch, which was also used to fix the drain. The patient was taken to the recovery room in a satisfactory condition. There were no evident complications. Vincent Hilton MD /[id number]
[2018-12-12] MEDS: MVI, Adult with Vitamin K 10 ML, Thiamine 200 MG, Chromium/Copper/Mang/Selen/Zn 1 ML in... IV SCH ×4 (16:45)
[2018-12-12] MEDS: Pantoprazole 40 MG Delayed-Release Granules 1 Packet PO SCH (20:32)
[2018-12-13] MEDS: Acetaminophen 325 MG Tab PO SCH ×4 (02:22→20:16)
[2018-12-13] MEDS: Enoxaparin 60 MG/0.6 ML Syringe SUBCUT SCH ×2 (05:29→18:51)
[2018-12-13] MEDS: Celecoxib 200 MG Cap PO SCH (08:08)
[2018-12-13] MEDS: Magnesium Hydroxide 400 MG/5 ML Susp 30 ML Cup PO SCH ×2 (08:09→20:17)
[2018-12-13] MEDS: Doxycycline 100 MG Cap PO SCH ×2 (08:10→20:18)
[2018-12-13] MEDS: Gabapentin 250 MG/5 ML Solution ML 470 ML Bottle PO SCH ×3 (08:12→20:21)
[2018-12-13] MEDS: Nystatin Topical Powder 15 GM Bottle TOP SCH ×3 (08:12→20:17)
[2018-12-13] MEDS: Zinc Oxide 20% Oint 56.7 GM Tube TOP SCH (08:13)
--- NOTE | 2018-12-13 12:20 | PCM.SURGPN ---
- General Info Date of Service: 12/13/18 Date of Surgery/Procedure: 12/10/18 POD#: 3 Functional Status: Reports: Pain Controlled, Tolerating Diet, Ambulating, Urinating, Incentive Spirometry - Review of Systems General: Reports: No Symptoms HEENT: Reports: No Symptoms Pulmonary: Reports: No Symptoms Cardiovascular: Reports: No Symptoms Gastrointestinal: Reports: No Symptoms (Had first BM today.) Genitourinary: Reports: No Symptoms Skin: Reports: No Symptoms (Continues to have fungal skin infection treated by wound care team) - Patient Data Vitals - Most Recent: Last Vital Signs Temp 37.1 C 12/13/18 11:00 Pulse 85 12/13/18 11:00 Resp 18 12/13/18 11:00 BP 159/91 H 12/13/18 11:00 Pulse Ox 96 12/13/18 11:00 Weight - Most Recent: 248.251 kg I&O - Last 24 Hours: Intake & Output 12/12/18 12/13/18 12/13/18 22:59 06:59 14:59 Intake Total 60 900 420 Output Total 500 Balance 60 400 420 Med Orders - Current: Current Medications Acetaminophen (Tylenol) 650 mg PO Q6H [facility] Last Admin: 12/13/18 08:09 Dose: 650 mg Celecoxib (Celebrex) 200 mg PO DAILY@0800 [facility] Last Admin: 12/13/18 08:08 Dose: 200 mg Doxycycline Hyclate (Vibramycin) 100 mg PO BID [facility] Last Admin: 12/13/18 08:10 Dose: 100 mg Enoxaparin Sodium (Lovenox) 60 mg SUBCUT Q12H [facility] Last Admin: 12/13/18 05:29 Dose: 60 mg Gabapentin (Neurontin) 300 mg PO TID [facility] Last Admin: 12/13/18 08:12 Dose: 300 mg Hydromorphone HCl (Dilaudid) 2 - 4 mg PO Q4H PRN PRN Reason: PAIN Last Admin: 12/13/18 05:36 Dose: 2 mg Hydroxyzine HCl (Vistaril) 100 mg IM Q4H PRN PRN Reason: pain Magnesium Hydroxide (Milk Of Magnesia) 30 ml PO BID [facility] Last Admin: 12/13/18 08:09 Dose: Not Given Multi-Ingred Cream/Lotion/Oil/Oint (Zinc Oxide) 0 gm TOP DAILY [facility] Last Admin: 12/13/18 08:13 Dose: 1 applic Nystatin (Nystop) 0 gm TOP TID [facility] Last Admin: 12/13/18 08:12 Dose: 1 applic Ondansetron HCl (Zofran Odt) 4 mg PO Q4H PRN PRN Reason: N/V Pantoprazole Sodium (Protonix Granules) 40 mg PO Q24H [facility] Last Admin: 12/12/18 20:32 Dose: 40 mg Discontinued Medications Acetaminophen (Tylenol Extra Strength) 1,000 mg PO ONETIME ONE Stop: 12/10/18 08:31 Last Admin: 12/10/18 08:07 Dose: 1,000 mg Cefoxitin Sodium (Mefoxin) Confirm Administered Dose 2 gm .ROUTE .STK-MED ONE Stop: 12/10/18 07:08 Last Admin: 12/10/18 14:54 Dose: 2 gm Celecoxib (Celebrex) 200 mg PO ONETIME ONE Stop: 12/10/18 08:31 Last Admin: 12/10/18 08:07 Dose: 200 mg Ropivacaine 60 ml/Dexamethasone 8 mg/Epinephrine HCl 0.4 mg/ Sodium Chloride 17.6 ml 0 ml NERVRT ASDIRECTED [facility] Last Admin: 12/10/18 14:06 Dose: 80 syringe Cyanocobalamin (Vitamin B12) 1,000 mcg IM ONETIME ONE Stop: 12/12/18 09:01 Last Admin: 12/12/18 09:12 Dose: 1,000 mcg Dexamethasone (Dexamethasone) Confirm Administered Dose 4 mg .ROUTE .STK-MED ONE Stop: 12/10/18 09:40 Diphenhydramine HCl (Benadryl) 50 mg IVPUSH Q4H PRN PRN Reason: ITCHING Enoxaparin Sodium (Lovenox) 60 mg SUBCUT ONETIME ONE Stop: 12/10/18 08:31 Last Admin: 12/10/18 08:06 Dose: 60 mg Enoxaparin Sodium (Lovenox) 60 mg SUBCUT Q12H [facility] Last Admin: 12/11/18 22:00 Dose: Not Given Fentanyl (Sublimaze) Confirm Administered Dose 250 mcg .ROUTE .STK-MED ONE Stop: 12/10/18 14:20 Fentanyl Citrate (Fentanyl) Confirm Administered Dose 500 mcg .ROUTE .STK-MED ONE Stop: 12/10/18 09:40 Gabapentin (Neurontin) 300 mg PO ONETIME ONE Stop: 12/10/18 08:31 Last Admin: 12/10/18 08:07 Dose: 300 mg Glycopyrrolate (Robinul) Confirm Administered Dose 1 mg .ROUTE .STK-MED ONE Stop: 12/10/18 09:40 Heparin Sodium (Porcine) (Heparin Sodium) 5,000 units SUBCUT Q8H [facility] Last Admin: 12/11/18 10:40 Dose: 5,000 units Hydromorphone HCl (Dilaudid) 0.5 mg IVPUSH Q2H PRN PRN Reason: MODERATE PAIN Hydromorphone HCl (Dilaudid) 1 mg IV Q2H PRN PRN Reason: SEVERE PAIN Last Admin: 12/10/18 19:28 Dose: 1 mg Hydromorphone HCl (Dilaudid) 2 - 4 mg PO Q4H PRN PRN Reason: Pain Hydroxyzine HCl (Vistaril) 100 mg IM ONETIME ONE Stop: 12/10/18 15:56 Last Admin: 12/10/18 16:01 Dose: 100 mg Dextrose/Lactated Ringer's (Dextrose 5%-Lactated Ringers) 1,000 mls @ 100 mls/ hr IV ASDIRECTED [facility] Last Admin: 12/10/18 08:06 Dose: 100 mls/hr Cefoxitin Sodium 2 gm/ Sodium (Chloride) 50 mls @ 100 mls/hr IV ONCALL ONE Stop: 12/10/18 11:59 Last Admin: 12/10/18 12:58 Dose: 100 mls/hr Ketamine HCl 50 mg/ Sodium (Chloride) 50 mls @ 21.9 mls/hr IV ASDIRECTED [facility] Lidocaine HCl/Dextrose (Lidocaine 2 Gm/D5w 500 Ml) 2 gm in 500 mls @ 22.5 mls/ hr IV .[id number] [facility] Stop: 12/11/18 09:43 Last Admin: 12/10/18 16:41 Dose: 1.5 mg/min, 22.5 mls/hr Dextrose/Lactated Ringer's (Dextrose 5%-Lactated Ringers) 1,000 mls @ 175 mls/ hr IV ASDIRECTED [facility] Last Admin: 12/11/18 06:24 Dose: 175 mls/hr Multivitamins/Minerals 10 ml/Thiamine HCl 200 mg/ Chromium/Copper/Manganese/ Seleni/Zn 1 ml/ Dextrose/Lactated Ringer's 1,013 mls @ 175 mls/hr IV DAILY@ 1600 [facility] Last Admin: 12/10/18 17:03 Dose: 175 mls/hr Cefoxitin Sodium 2 gm/ Sodium (Chloride) 50 mls @ 100 mls/hr IV Q6H [facility] Stop: 12/11/18 20:29 Last Admin: 12/11/18 20:16 Dose: 100 mls/hr Dextrose/Lactated Ringer's (Dextrose 5%-Lactated Ringers) 1,000 mls @ 100 mls/ hr IV ASDIRECTED [facility] Last Admin: 12/12/18 02:16 Dose: 100 mls/hr Multivitamins/Minerals 10 ml/Thiamine HCl 200 mg/ Chromium/Copper/Manganese/ Seleni/Zn 1 ml/ Dextrose/Lactated Ringer's 1,013 mls @ 100 mls/hr IV DAILY@ 1600 [facility] Last Admin: 12/12/18 16:45 Dose: Not Given Dextrose/Lactated Ringer's (Dextrose 5%-Lactated Ringers) 1,000 mls @ 100 mls/ hr IV ASDIRECTED [facility] Iohexol (Omnipaque-300) 50 ml PO ONETIME STA Stop: 12/11/18 19:11 Last Admin: 12/11/18 22:01 Dose: Not Given Ketamine HCl (Ketalar) 36 mg IV ASDIRECTED [facility] Labetalol HCl (Normodyne) 5 mg IVPUSH Q5M PRN PRN Reason: SBP over 160 OR DBP over 95 Lidocaine HCl (Xylocaine 2%) 160 mg IVPUSH ASDIRECTED [facility] Metoclopramide HCl (Reglan) 10 mg IVPUSH Q6H PRN PRN Reason: NAUSEA NOT CONTROL BY ZOFRAN Miscellaneous Information (Remove Patch) 1 ea TRDERM ONETIME ONE Stop: 12/12/18 10:01 Last Admin: 12/12/18 14:44 Dose: Not Given Neostigmine Methylsulfate (Neostigmine) Confirm Administered Dose 5 mg .ROUTE .STK-MED ONE Stop: 12/10/18 09:40 Scopolamine Patch (Check) 1 each TOP DAILY [facility] Stop: 12/12/18 16:44 Last Admin: 12/12/18 09:13 Dose: Not Given Non-Formulary Medication (Doxycycline Monohydrate [Doxycycline Monohydrate]) 100 mg PO BID [facility] Last Admin: 12/11/18 22:00 Dose: Not Given Ondansetron HCl (Zofran) Confirm Administered Dose 4 mg .ROUTE .STK-MED ONE Stop: 12/10/18 09:40 Ondansetron HCl (Zofran) 4 mg IVPUSH Q4H PRN PRN Reason: Nausea/Vomiting Ondansetron HCl (Zofran Odt) 4 mg PO Q4H PRN PRN Reason: Nausea/Vomiting Pantoprazole Sodium (Protonix Iv) 40 mg IVPUSH Q24H [facility] Last Admin: 12/10/18 20:46 Dose: 40 mg Pharmacy Consult (Consult To Pharmacy) 1 each .XX ASDIRECTED [facility] Stop: 12/12/18 07:15 Propofol (Diprivan 20 Ml) Confirm Administered Dose 200 mg .ROUTE .STK-MED ONE Stop: 12/10/18 09:40 Rocuronium Huger (Zemuron) Confirm Administered Dose 50 mg .ROUTE .STK-MED ONE Stop: 12/10/18 09:40 Scopolamine (Transderm-Scop) 1.5 mg TOP Q72H [facility] Stop: 12/12/18 08:31 Last Admin: 12/10/18 08:07 Dose: 1.5 mg Sodium Chloride (Normal Saline) 500 ml IRR .STK-MED ONE Stop: 12/10/18 14:55 Last Admin: 12/10/18 14:54 Dose: 500 ml Succinylcholine Chloride (Quelicin) Confirm Administered Dose 200 mg .ROUTE .STK -MED ONE Stop: 12/10/18 09:40 - Exam Wound/Incisions: Healing Well, No Drainage General: Alert, Oriented, Cooperative, No Acute Distress Lungs: Clear to Auscultation, Normal Respiratory Effort Cardiovascular: Regular Rate, Regular Rhythm GI/Abdominal Exam: Normal Bowel Sounds, Soft, Non-Tender - Problem List Review Problem List Initiated/Reviewed/Updated: Yes - My Orders Last 24 Hours: Medication Orders Acetaminophen (Tylenol) 650 mg PO Q6H [facility] Last Admin: 12/13/18 08:09 Dose: 650 mg Admin: 12/13/18 02:22 Dose: 650 mg Admin: 12/12/18 20:32 Dose: 650 mg Admin: 12/12/18 14:42 Dose: 650 mg Admin: 12/12/18 09:12 Dose: 650 mg Admin: 12/12/18 02:17 Dose: 650 mg Admin: 12/11/18 20:16 Dose: 650 mg Admin: 12/11/18 13:39 Dose: 650 mg Admin: 12/11/18 07:15 Dose: 650 mg Admin: 12/11/18 01:31 Dose: 650 mg Admin: 12/10/18 20:41 Dose: 650 mg Celecoxib (Celebrex) 200 mg PO DAILY@0800 [facility] Last Admin: 12/13/18 08:08 Dose: 200 mg Admin: 12/12/18 09:12 Dose: 200 mg Admin: 12/11/18 07:16 Dose: 200 mg Doxycycline Hyclate (Vibramycin) 100 mg PO BID [facility] Last Admin: 12/13/18 08:10 Dose: 100 mg Admin: 12/12/18 20:33 Dose: 100 mg Admin: 12/12/18 09:12 Dose: 100 mg Admin: 12/11/18 20:17 Dose: 100 mg Admin: 12/11/18 12:51 Dose: 100 mg Enoxaparin Sodium (Lovenox) 60 mg SUBCUT Q12H [facility] Last Admin: 12/13/18 05:29 Dose: 60 mg Admin: 12/12/18 18:21 Dose: 60 mg Admin: 12/12/18 05:34 Dose: 60 mg Admin: 12/11/18 17:33 Dose: 60 mg Gabapentin (Neurontin) 300 mg PO TID [facility] Last Admin: 12/13/18 08:12 Dose: 300 mg Admin: 12/12/18 20:34 Dose: Not Given Admin: 12/12/18 14:43 Dose: 300 mg Admin: 12/12/18 09:11 Dose: 300 mg Admin: 12/11/18 20:16 Dose: 300 mg Admin: 12/11/18 15:04 Dose: 300 mg Admin: 12/11/18 08:27 Dose: 300 mg Admin: 12/10/18 20:42 Dose: 300 mg Hydromorphone HCl (Dilaudid) 2 - 4 mg PO Q4H PRN PRN Reason: PAIN Last Admin: 12/13/18 05:36 Dose: 2 mg Hydroxyzine HCl (Vistaril) 100 mg IM Q4H PRN PRN Reason: pain Magnesium Hydroxide (Milk Of Magnesia) 30 ml PO BID [facility] Last Admin: 12/13/18 08:09 Dose: Not Given Admin: 12/12/18 20:32 Dose: 30 ml Admin: 12/12/18 09:12 Dose: 30 ml Multi-Ingred Cream/Lotion/Oil/Oint (Zinc Oxide) 0 gm TOP DAILY [facility] Last Admin: 12/13/18 08:13 Dose: 1 applic Admin: 12/12/18 09:13 Dose: 1 applic Admin: 12/11/18 08:28 Dose: 1 applic Admin: 12/10/18 08:07 Dose: 1 applic Admin: 12/09/18 18:05 Dose: Nystatin (Nystop) 0 gm TOP TID [facility] Last Admin: 12/13/18 08:12 Dose: 1 applic Admin: 12/12/18 20:32 Dose: 1 applic Admin: 12/12/18 14:43 Dose: 1 applic Admin: 12/12/18 09:12 Dose: 1 applic Admin: 12/11/18 20:17 Dose: 1 applic Admin: 12/11/18 13:40 Dose: 1 applic Admin: 12/11/18 08:27 Dose: 1 applic Admin: 12/10/18 20:46 Dose: 1 applic Admin: 12/10/18 13:39 Dose: Admin: 12/10/18 08:17 Dose: 1 applic Admin: 12/09/18 23:51 Dose: 1 applic Ondansetron HCl (Zofran Odt) 4 mg PO Q4H PRN PRN Reason: N/V Pantoprazole Sodium (Protonix Granules) 40 mg PO Q24H [facility] Last Admin: 12/12/18 20:32 Dose: 40 mg Admin: 12/11/18 20:16 Dose: 40 mg - Assessment Assessment (Free Text/Narrative):: Isaias Paula is a 48 yo male s/p day 3 RYGB. He is healing well, pain well controlled, and well healing incisions. He was able to pass a BM today. He is ambulating independently. He will be ready to discharge to home tomorrow. He will be at his follow up appointment on 12/20/2018 then will move to [place] to be near his dying niece; we will need to work with him to ensure follow up. His fungal skin infection continues to heal. - Plan Plan (Free Text/Narrative):: 1. RYGB -PO Dilaudid -Step 2 diet -Continue to ambulate -Lovenox 60 mg
[2018-12-13] MEDS: Pantoprazole 40 MG Delayed-Release Granules 1 Packet PO SCH (20:16)
[2018-12-14] MEDS: Acetaminophen 325 MG Tab PO SCH ×2 (03:08→07:00)
[2018-12-14] MEDS: Enoxaparin 60 MG/0.6 ML Syringe SUBCUT SCH (06:54)
[2018-12-14] MEDS: Celecoxib 200 MG Cap PO SCH (07:00)
[2018-12-14] MEDS: Magnesium Hydroxide 400 MG/5 ML Susp 30 ML Cup PO SCH (08:53)
[2018-12-14] MEDS: Doxycycline 100 MG Cap PO SCH (08:53)
[2018-12-14] MEDS: Nystatin Topical Powder 15 GM Bottle TOP SCH (08:54)
[2018-12-14] MEDS: Zinc Oxide 20% Oint 56.7 GM Tube TOP SCH (08:54)
[2018-12-14] MEDS: Gabapentin 250 MG/5 ML Solution ML 470 ML Bottle PO SCH (08:57)
[2018-12-14] MEDS ORDERED: Magnesium Hydroxide 400 MG/5 ML Susp 30 ML Cup PO ONE (10:00)
--- NOTE | 2018-12-17 09:33 | DISCH ---
FINAL DIAGNOSES: 1. Morbid obesity. 2. Marked hepatomegaly. 3. Immobile small bowel due to foreshortened fatty infiltrated small bowel mesentery. 4. Peritoneal implant at angle of His. 5. Paraesophageal diaphragmatic hernia. 6. Mediastinal lipoma. 7. History of venous stasis and leg ulcers. 8. Obstructive sleep apnea. 9. History of pulmonary embolism. OPERATIVE PROCEDURE: This was done on 12/10/2018; diagnostic laparoscopy with: 1. Laparoscopic Holly-en-Y gastric bypass with long limb gastroenterostomy. 2. Paulino-Cut needle liver biopsy. 3. Small bowel obstruction. 4. Excision of mediastinal lipoma. 5. Repair of paraesophageal diaphragmatic hernia. 6. Excision of peritoneal nodule overlying the angle of His. SUMMARY: This is a 48-year-old male with severe morbid obesity, presenting at the time of consultation with a weight of 551 pounds and BMI of 81.5. After preop evaluation and discussion, he wished to proceed with a gastric bypass procedure. The patient was admitted one day earlier for getting him cleaned up, and on 12/10/2018, the patient underwent the above procedures. Postoperatively, he has had no major problems. He is tolerating a step-2 diet satisfactorily and has moved his bowels. Discharge medications will be continuation of the doxycycline 100 mg b.i.d. until that prescription is completed. Also, being sent home with Celebrex 200 mg p.o. daily x14 days with this being switched to p.r.n. mode after next , 12/19/2018. Also given Lovenox 60 mg subcutaneous b.i.d. x2 weeks, due to history of pulmonary embolism and his relative immobility and expected long car ride later next week to the [facility] or [place] area. He will be also instructed to take Tylenol as needed for pain and hold his vitamins and other supplements until after the first appointment. First appointment will be with Dr. Hilton at [facility] on 12/18/2018.
== END 2018-12-14 10:20 | disposition home or self-care (01) | DRG 621 ==
LOC: JP.2SS 11:05 → JP.SDS 11:05 → JP.2SS 11:42 → JP.SDS 11:42
PROVIDERS: ADMIT Surgery; ATTEND Surgery
PROC: 0D164ZA Bypass Stomach to Jejunum, Percutaneous Endoscopic Approach (ICD-10-PCS; principal; 2018-12-10)
PROC: 0DBW4ZZ Excision of Peritoneum, Percutaneous Endoscopic Approach (ICD-10-PCS; principal; 2018-12-10)
PROC: 0WUF4JZ Supplement Abdominal Wall with Synthetic Substitute, Percutaneous Endoscopic Approach (ICD-10-PCS; principal; 2018-12-10)
PROC: 0FB24ZX Excision of Left Lobe Liver, Percutaneous Endoscopic Approach, Diagnostic (ICD-10-PCS; principal; 2018-12-10)
PROC: 0WBC4ZZ Excision of Mediastinum, Percutaneous Endoscopic Approach (ICD-10-PCS; principal; 2018-12-10)
DX: E66.01 Morbid (severe) obesity due to excess calories (principal); Z68.45 Body mass index [BMI] 70 or greater, adult; R16.0 Hepatomegaly, not elsewhere classified; K59.8 Other specified functional intestinal disorders; K44.9 Diaphragmatic hernia without obstruction or gangrene; D17.4 Benign lipomatous neoplasm of intrathoracic organs; I87.8 Other specified disorders of veins; G47.33 Obstructive sleep apnea (adult) (pediatric); K66.8 Other specified disorders of peritoneum; K76.0 Fatty (change of) liver, not elsewhere classified; B36.8 Other specified superficial mycoses; Z86.711 Personal history of pulmonary embolism
CPT/HCPCS: 36415; 74240; 80053; 82962; 83735; 83880; 84100; 85025; 86850; 86900; 86901; A9270-GY; C9113; J0171; J0330; J0694; J1100; J1170; J1644; J1650; J2001; J2405; J2704; J2710; J2795; J3010; J3410; J3411; J3420; J3490; J7030; J7042; J7050